=== PATIENT | female | born 1965 | race Caucasian/White ===

== ENCOUNTER → 2017-06-05 | Outpatient (CLI) | payer MEDICAID ==
[2017-06-05 16:54] LABS: ALBUMIN 3.6 g/dL (3.4-5.0); BILIRUBIN,DIRECT 0.08 mg/dL (0-0.2); TOTAL PROTEIN 7.7 g/dL (6.4-8.2)
[2017-06-07 23:03] LABS: HEPATITIS A ANTIBODY IGM Negative (Negative)
[2017-06-08 06:35] LABS: HEPATITIS B CORE IGM Negative (Negative); HEPATITIS B SURFACE ANTIGEN Negative (Negative)
[2017-06-08 06:37] LABS: ANTI-NUCLEAR ANTIBODY TEST Detected (None Detected)
[2017-06-11 07:39] LABS: COPPER LEVEL 110 ug/dL (80-155)
== END ==
LOC: LAB 15:54
PROVIDERS: ATTEND Internal Medicine Gastroenterology
DX: R94.5 Abnormal results of liver function studies (principal)
CPT/HCPCS: 36415; 80074; 80076; 82103; 82390; 82525; 82728; 83540; 83550; 84466; 86256; 86308

== ENCOUNTER → 2017-06-08 | Outpatient (CLI) | payer MEDICAID ==
--- NOTE | 2017-06-08 11:57 | US ---
HISTORY: Abnormal liver function tests Study: Hepatic sonogram Comparison: None Technique: Multiple grayscale sonographic images were obtained. Findings: The liver was normal in size and configuration but increased in echogenicity suggestive of fatty inf iltration. No cysts, masses, or biliary ductal dilatation was identified. The common duct measured 4 .7 millimeters. IMPRESSION: Fatty infiltration of the liver Reported By:
== END | disposition home or self-care (01) | DRG 443 ==
LOC: RAD 10:17
PROVIDERS: ATTEND Internal Medicine Gastroenterology
DX: R94.5 Abnormal results of liver function studies (principal); K76.0 Fatty (change of) liver, not elsewhere classified
CPT/HCPCS: 76705

== ENCOUNTER → 2017-06-14 | Outpatient (CLI) | payer MEDICAID | LOC: RAD 14:35 | PROVIDERS: ATTEND Internal Medicine Cardiovascular Disease | DX: R53.83 Other fatigue (principal) | CPT/HCPCS: 93306 ==

== ENCOUNTER 2017-06-21 08:19 | Day surgery (SDC) | payer MEDICAID ==
[2017-06-21] MEDS ORDERED: D5 LR 1000 ML 1,000 ML IV ONE (08:32)
[2017-06-21] MEDS ORDERED: DIPRIVAN VIAL 20 ML ONE (09:34)
[2017-06-21 10:37] VITALS: BP 132/80
== END 2017-06-21 10:10 | disposition home or self-care (01) ==
LOC: SURG1 08:19
PROVIDERS: ATTEND Internal Medicine Gastroenterology
PROC: 0DB88ZX Excision of Small Intestine, Via Natural or Artificial Opening Endoscopic, Diagnostic (ICD-10-PCS; principal; 2017-06-21 10:30)
PROC: 0D757ZZ Dilation of Esophagus, Via Natural or Artificial Opening (ICD-10-PCS; principal; 2017-06-21 10:30)
PROC: 0DJ08ZZ Inspection of Upper Intestinal Tract, Via Natural or Artificial Opening Endoscopic (ICD-10-PCS; principal; 2017-06-21 10:30)
PROC: 0DB68ZX Excision of Stomach, Via Natural or Artificial Opening Endoscopic, Diagnostic (ICD-10-PCS; principal; 2017-06-21 10:30)
DX: R13.19 Other dysphagia (principal); R10.13 Epigastric pain; R11.0 Nausea; K21.9 Gastro-esophageal reflux disease without esophagitis; R10.84 Generalized abdominal pain; R19.7 Diarrhea, unspecified; K25.9 Gastric ulcer, unspecified as acute or chronic, without hemorrhage or perforation; K29.60 Other gastritis without bleeding; K20.8 Other esophagitis; K31.7 Polyp of stomach and duodenum; K22.2 Esophageal obstruction
CPT/HCPCS: A4217; J3490; J7120

== ENCOUNTER 2017-06-28 09:17 | Day surgery (SDC) | payer MEDICAID ==
[2017-06-28] MEDS ORDERED: D5 LR 1000 ML 1,000 ML IV ONE (09:19)
[2017-06-28] MEDS ORDERED: DIPRIVAN VIAL 20 ML ONE ×2 (10:24→10:31)
[2017-06-28 12:20] VITALS: BP 129/71
== END 2017-06-28 11:10 | disposition home or self-care (01) ==
LOC: SURG1 09:17
PROVIDERS: ATTEND Internal Medicine Gastroenterology
PROC: 0DJD8ZZ Inspection of Lower Intestinal Tract, Via Natural or Artificial Opening Endoscopic (ICD-10-PCS; principal; 2017-06-28 08:30)
PROC: 0DBE8ZX Excision of Large Intestine, Via Natural or Artificial Opening Endoscopic, Diagnostic (ICD-10-PCS; principal; 2017-06-28 08:30)
DX: Z12.11 Encounter for screening for malignant neoplasm of colon (principal); R10.84 Generalized abdominal pain; R19.4 Change in bowel habit; R11.0 Nausea; K64.0 First degree hemorrhoids
CPT/HCPCS: A4217; J3490; J7120

== ENCOUNTER → 2017-11-20 | Outpatient (CLI) | payer MEDICAID ==
[2017-11-20 14:15] LABS: ALBUMIN 3.6 g/dL (3.4-5.0); BILIRUBIN,DIRECT 0.08 mg/dL (0-0.2); TOTAL PROTEIN 8.2 g/dL (6.4-8.2)
[2017-11-20 14:21] LABS: BASOPHILS # (AUTO) 0.1 X10^3/uL (0.0-0.1); BASOPHILS % (AUTO) 0.7 % (0.2-1.0); EOSINOPHILS # (AUTO) 0.1 x10^3/uL (0.0-0.2); EOSINOPHILS % (AUTO) 1.5 % (0.9-2.9); HEMATOCRIT 39.5 % (36.0-47.0); HEMOGLOBIN 13.3 g/dL (12.0-16.0); LYMPHOCYTES # (AUTO) 2.9 X10^3/uL (1.3-2.9); LYMPHOCYTES % (AUTO) 32.2 % (21.0-51.0); MEAN CORPUSCULAR HEMOGLOBIN 29.3 pg (27.0-34.0); MEAN CORPUSCULAR HGB CONC 33.7 g/dL (33.0-35.0); MEAN CORPUSCULAR VOLUME 86.9 fL (80.0-100.0); MEAN PLATELET VOLUME 10.1 fL (7.4-11.0); MONOCYTES # (AUTO) 0.7 x10^3/uL (0.3-0.8); MONOCYTES % (AUTO) 7.8 % (0.0-13.0); NEUTROPHILS # (AUTO) 5.2 x10^3/uL (2.2-4.8); NEUTROPHILS % (AUTO) 57.8 % (42.0-75.0); PLATELET COUNT 258 X10^3/uL (150.0-450.0); RED BLOOD COUNT 4.55 X10^6/uL (3.5-5.4); RED CELL DISTRIBUTION WIDTH 13.8 % (11.6-16.5); WHITE BLOOD COUNT 9.1 X10^3/uL (3.6-10.0)
== END ==
LOC: LAB 13:39
PROVIDERS: ATTEND Internal Medicine Gastroenterology
DX: R94.5 Abnormal results of liver function studies (principal)
CPT/HCPCS: 36415; 80076; 85025